=== PATIENT | male | born 1990 | race Caucasian/White ===

== ENCOUNTER → 2024-04-15 08:59 | Outpatient (REF) | payer MEDICARE, SELFPAY | LOC: HWRCS 08:59 | PROVIDERS: ATTENDING PHYSICIAN Internal Medicine Cardiovascular Disease; FAMILY PHYSICIAN Family Medicine | DX: Z87.74 Personal history of (corrected) congenital malformations of heart and circulatory system (principal) | CPT/HCPCS: 93306 ==